=== PATIENT | female | born 1940 | race Caucasian/White ===

== ENCOUNTER 2016-10-15 11:03 | Outpatient (CLI) | payer MEDICARE, BC ==
[~2016-10-15] VITALS: Ht 167.6 cm; Wt 75.0 kg
[~2016-10-15 11:03] MED LIST: 00186-0370-20 IH; CELEBREX 200MG200 MG PO; COUMADIN 22.5 MG/TAB PO; CRESTOR 10MG10 MG PO; CRESTOR20 MG PO; LEVAQUIN 750MG750 M1 PO; SYNTHROID0.112 MG/T PO; TYLENOL 325MG325 MG PO; XALATAN EYE DROPS OD; ZANTAC 150 EFF150 M1 PO
[2016-10-15 11:56] VITALS: BP 145/65; PULSE 81; TEMP 98.2
== END 2016-10-15 15:18 | disposition home or self-care (01) ==
LOC: EUO 11:03
DX: M81.0 Age-related osteoporosis without current pathological fracture (principal)
CPT/HCPCS: J3489

== ENCOUNTER 2017-10-11 13:50 | Outpatient (CLI) | payer MEDICARE, BC ==
[~2017-10-11] VITALS: Ht 167.6 cm; Wt 50.0 kg
[2017-10-11 15:04] VITALS: BP 117/64; PULSE 72; TEMP 98.2
== END 2017-10-11 15:45 | disposition home or self-care (01) ==
LOC: EUO 13:50
DX: M81.0 Age-related osteoporosis without current pathological fracture (principal)
CPT/HCPCS: J3489

== ENCOUNTER → 2018-02-24 | Outpatient (CLI) | payer MEDICARE, BC | LOC: MC.RAD 08:52 | DX: Z12.31 Encounter for screening mammogram for malignant neoplasm of breast (principal) ==

== ENCOUNTER → 2018-12-01 | Outpatient (CLI) | payer MEDICARE, BC | LOC: COL.LAB 10:27 | DX: L81.9 Disorder of pigmentation, unspecified (principal); M79.605 Pain in left leg; Z86.718 Personal history of other venous thrombosis and embolism ==

== ENCOUNTER → 2020-08-08 | Outpatient (CLI) | payer MEDICARE, BC | LOC: ZCOL.LAB 16:50 | DX: M79.89 Other specified soft tissue disorders (principal) ==